=== PATIENT | male | born 1950 | race Caucasian/White ===

== ENCOUNTER → 2016-06-03 | Outpatient (CLI) | payer OTHER | LOC: MMPC 11:11 | PROVIDERS: ATTEND Nurse Practitioner Family | DX: E29.1 Testicular hypofunction (principal) | CPT/HCPCS: G0463; J1071 ==

== ENCOUNTER → 2016-08-17 | Outpatient (CLI) | payer OTHER | LOC: MMPC 09:00 | PROVIDERS: ATTEND Nurse Practitioner Family | DX: E29.1 Testicular hypofunction (principal) | CPT/HCPCS: G0463; J1071 ==

== ENCOUNTER → 2016-08-23 | Outpatient (CLI) | payer OTHER | LOC: MMPC 11:11 | PROVIDERS: ATTEND Surgery | DX: Z86.010 Personal history of colon polyps (principal); K59.00 Constipation, unspecified | CPT/HCPCS: 99202; G0463 ==

== ENCOUNTER 2016-09-10 10:04 | Day surgery (SDC) | payer OTHER ==
[~2016-09-10 10:04] MED LIST: LIDOCAINE W/ SODIUM BICARB 0.5 ML SYR ONE; Lactated Ringers 1,000 ML PRIMARY IV ONE; MIDAZOLAM 5 MG/1 ML ONE; fentaNYL Inj 100 MCG/2 ML VIAL ONE
[2016-09-10] MEDS ORDERED: LIDOCAINE HCL/PF 2% (20 MG/ML) - 5 ML SYRINGE ONE (11:13)
[2016-09-10] MEDS ORDERED: LIDOCAINE 2% VISCOUS(20 MG/1 ML) - 15 ML UD CUP PO ONE (11:13)
--- NOTE | 2016-09-10 12:27 | GEN.OPNOTE ---
EGD / Colonoscopy Report Surgery Date: 09/10/16 Preoperative Diagnosis: GERD. Dysphagia. Personal history of colon polyps. Postoperative Diagnosis: GERD. Dysphagia. Esophagitis. Right colon polyp. Procedure: #1 esophagogastroduodenoscopy with biopsy. #2 complete colonoscopy with hot snare polypectomy for right colon polyp. Surgeon: Nimesh Conley MD Anesthesia Provider: Shun Tineo CRNA Anesthesia Type: MAC Indications: See preoperative diagnosis. EGD Findings: Esophagus: [Normal] GE Junction : [Inflammation at the GE junction both of the cardiac mucosa and the distal esophageal mucosa.] Fundus : [Normal] Body : [Normal] Prepyloric : [Mild erythema] Small Intestine : [Normal] A lubricated flexible upper endoscope was inserted and passed through the esophagus and stomach into the duodenum. The duodenum and duodenal bulb were unremarkable. The pyloric channel was widely patent. Other than some mild erythema in the antrum the gastric mucosa was unremarkable. Several biopsies were taken. Hemostasis was assured. The scope was withdrawn into the distal esophagus. There was irregularity of the Z line and inflammatory changes. There was a linear ulcer, which was superficial, in the distal esophagus. Multiple biopsies were taken. Hemostasis was assured. The scope was withdrawn through the remainder of a normal-appearing esophagus and brought through the hypopharynx under suction completing that portion of the procedure. Colonoscopy Findings: Prep : [Very good] Cecum : [Normal] Ascending : [Adenomatous appearing polyp. Removed with a hot snare.] Transverse : [Normal] Sigmoid : [Normal] Rectum : [Normal] Digital Rectal Exam : [Prostate mildly enlarged but nonnodular] A lubricated flexible colonoscope was inserted and passed to the blind end of the cecum. The ileocecal valve and blind end of the cecum as well as the appendiceal orifice were clearly seen. Above the ileocecal valve was an adenomatous-appearing polyp. It was removed with a hot snare technique. Hemostasis was assured. The remainder of the colonoscopy was normal without polyp, tumor, neoplastic mass, infectious or inflammatory process. The scope was withdrawn completing the procedure. Patient tolerated all aspects of the procedure well without complication. He was taken to outpatient surgery in stable condition. We will call the biopsy results when available and plan therapy and follow-up accordingly.
[2016-09-10 13:33] VITALS: RESP 16
[2016-09-10 13:34] VITALS: TEMP 97.8
== END 2016-09-10 12:38 | disposition home or self-care (01) ==
LOC: SDSC 10:04
PROVIDERS: ATTEND Surgery
DX: Z86.010 Personal history of colon polyps (principal); K59.00 Constipation, unspecified; K21.9 Gastro-esophageal reflux disease without esophagitis; K63.5 Polyp of colon
CPT/HCPCS: 00810; 43239 ×2; 45385 ×2; J2704; J3010; J2001; J2250; J7120

== ENCOUNTER → 2016-09-14 | Outpatient (CLI) | payer OTHER | LOC: MMPC 09:00 | PROVIDERS: ATTEND Nurse Practitioner Family | DX: E29.1 Testicular hypofunction (principal) | CPT/HCPCS: G0463; J1071 ==

== ENCOUNTER → 2016-10-22 | Outpatient (CLI) | payer OTHER | LOC: MMPC 09:00 | PROVIDERS: ATTEND Nurse Practitioner Family | DX: E29.1 Testicular hypofunction (principal) ==

== ENCOUNTER → 2016-11-18 | Outpatient (CLI) | payer OTHER | LOC: MMPC 09:00 | PROVIDERS: ATTEND Nurse Practitioner Family | DX: E29.1 Testicular hypofunction (principal) | CPT/HCPCS: G0463; J1071 ==

== ENCOUNTER → 2016-12-22 | Outpatient (CLI) | payer OTHER | LOC: MMPC 09:00 | PROVIDERS: ATTEND Nurse Practitioner Family | DX: E29.1 Testicular hypofunction (principal) | CPT/HCPCS: G0463; J1071 ==